=== PATIENT | male | born 1995 | race Caucasian/White ===

== ENCOUNTER 2019-04-21 21:05 | Emergency (ER) | payer OTHER, MEDICAID ==
[~2019-04-21] VITALS: Ht 172.7 cm; Wt 127.0 kg
[2019-04-21] MEDS ORDERED: GLUCOPHAGE XR750 MG PO (21:32)
[2019-04-21] MEDS ORDERED: SYNTHROID175 MCG PO (21:32)
[2019-04-21] MEDS ORDERED: TRAZODONE HCL100 MG PO (21:33)
[2019-04-21] MEDS ORDERED: MS CONTIN15 MG PO (21:34)
[2019-04-21] MEDS ORDERED: MOVANTIK25 MG PO (21:35)
[2019-04-21] MEDS ORDERED: MS CONTIN30 MG PO (21:35)
[2019-04-21] MEDS ORDERED: LEXAPRO 10 MG T10 M2 PO (21:35)
[2019-04-21 22:51] LABS: ABSOLUTE NEUTROPHILS 5.2 thou/uL (1.4-8.2); BASOPHILS 0.9 % (0.0-2.0); EOSINOPHILS 0.8 % (0.0-3.0); HEMATOCRIT 44.9 % (42.0-52.0); HEMOGLOBIN 15.1 gm/dL (14.0-18.0); LYMPHOCYTES 23.8 % (24.0-44.0); MCH 30.7 pg (26.0-34.0); MCHC 33.7 g/dL (28.0-37.0); MCV 91.1 fL (80.0-100.0); MONOCYTES 5.7 % (1.0-8.0); PLATELET COUNT 271 thou/uL (150-400); POLYS 68.8 % (36.0-66.0); RBC 4.93 mil/uL (4.50-6.00); RDW 14.3 % (10.5-14.5); WBC 7.6 thou/uL (4.0-11.0)
[2019-04-21 22:58] LABS: CALCIUM 9.1 mg/dL (8.5-10.1); CREATININE 1.1 mg/dL (0.7-1.3); POTASSIUM 3.7 mmol/L (3.5-5.1)
[2019-04-22] MEDS ORDERED: TOPAMAX50 MG PO (00:08)
[2019-04-22] MEDS ORDERED: CARBAMAZEPINE200 MG PO (00:08)
[2019-04-22] MEDS ORDERED: DESMOPRESSIN A0.2 M2 PO (00:09)
[2019-04-22] MEDS ORDERED: HYDROCORTISONE5 MG PO (00:10)
[2019-04-22] MEDS ORDERED: PROZAC20 MG PO (00:10)
[2019-04-22] MEDS ORDERED: PHENERGAN 25 MG25 M1 PO (01:17)
[2019-04-22 01:34] VITALS: BP 171/87
== END 2019-04-22 01:34 | disposition home or self-care (01) ==
LOC: ER 21:05
PROVIDERS: Emergency Medicine
DX: R51 Headache (principal); R11.2 Nausea with vomiting, unspecified; Z88.6 Allergy status to analgesic agent; Z88.8 Allergy status to other drugs, medicaments and biological substances; Z88.1 Allergy status to other antibiotic agents